=== PATIENT | male | born 1995 | race Caucasian/White ===

== ENCOUNTER 2019-10-11 15:50 | Emergency (ER) | payer SELFPAY ==
[~2019-10-11] VITALS: Ht 177.8 cm; Wt 78.0 kg
[2019-10-11 16:09] VITALS: BP 128/66
[2019-10-11] MEDS ORDERED: DIPH,PERTUSS(ACELL),TET VAC/PF 0.5 ML IM-VACC ONE ×2 (16:36→17:00)
[2019-10-11] MEDS ORDERED: LIDOCAINE-MPF 1%, 5ML ONE (16:36)
[2019-10-11] MEDS ORDERED: NEOSPORIN OINT. PKT 1 PACKET ONE (16:59)
[2019-10-11] MEDS ORDERED: LIDOCAINE 1%, 10ML INFIL ONE (17:00)
--- NOTE | 2019-10-11 17:06 | NUR ---
wound cleaned, sutured & dressed. Td updated. Info sheet provided along with d/c instructions.
== END 2019-10-11 17:52 | disposition home or self-care (01) ==
LOC: ED 17:15
DX: S61.412A Laceration without foreign body of left hand, initial encounter (principal); X58.XXXA Exposure to other specified factors, initial encounter; Y93.89 Activity, other specified; Y92.009 Unspecified place in unspecified non-institutional (private) residence as the place of occurrence of the external cause; Y99.8 Other external cause status
CPT/HCPCS: 12041; 90471; 90715